=== PATIENT | male | born 1995 | race Two or more races ===

== ENCOUNTER 2017-02-04 18:36 | Emergency (ER) | payer SELFPAY ==
[~2017-02-04] VITALS: Ht 180.3 cm; Wt 73.5 kg
[2017-02-04 19:05] VITALS: BP 116/79
[2017-02-04 19:38] LABS: Basophils # (auto) 0.1 uL; Basophils % (auto) 0.4 % (0.0-2.0); CONDITION Y; Eosinophils # (auto) 0 uL; Eosinophils % (auto) 0.1 % (0.0-7.0); Hematocrit 46.9 % (41.0-53.0); Hemoglobin 16.1 g/dL (13.5-17.5); Lymphocytes # (auto) 1.3 uL; Lymphocytes % (auto) 8.2 % (10.0-50.0); Mean Corpuscular Hemoglobin 30.6 pg (28.0-32.0); Mean Corpuscular Hgb Conc. 34.4 g/dL (32.0-36.0); Mean Corpuscular Volume 88.9 fL (80.0-100.0); Mean Platelet Volume 9.6 fL (7.4-10.4); Monocytes # (auto) 1.1 uL; Monocytes % (auto) 7.1 % (0.0-12.0); Neutrophils % (auto) 84.2 % (37.0-80.0); Platelet Count (auto) 193 10^3/uL (140-450); Red Cell Distribution Width 12.6 % (11.6-16.0); White Blood Cell 15.4 10^3/uL (4.4-10.8)
[2017-02-04 19:53] LABS: Albumin 4.2 g/dL (3.4-5.0); BUN/Creatinine Ratio 16.7; Potassium 3.7 mmol/L (3.5-5.1); Total Protein 7.8 g/dL (6.4-8.2)
== END 2017-02-05 00:26 | disposition left against medical advice (07) ==
LOC: ER 18:38
DX: R10.9 Unspecified abdominal pain (principal); R50.9 Fever, unspecified; R11.10 Vomiting, unspecified; Z53.21 Procedure and treatment not carried out due to patient leaving prior to being seen by health care provider
CPT/HCPCS: 36415; 80053; 85025

== ENCOUNTER 2024-01-10 08:08 | Emergency (ER) | payer MEDICAID ==
[~2024-01-10] VITALS: Ht 180.3 cm; Wt 100.3 kg
[2024-01-10 09:01] VITALS: BP 116/69; PULSE 79; RESP 18; TEMP 98.2; O2SAT 97
[2024-01-10 09:12] LABS: Urine Bacteria None Seen /hpf (None Seen)
[2024-01-10 09:37] LABS: Urine Blood Negative /uL (Negative); Urine Clarity Clear (Clear); Urine Color Light-Yellow (Yellow); Urine Mucus FEW (None Seen); Urine Protein, UAD Negative (Negative); Urine Urobilinogen Normal (Negative); Urine WBC <1 /hpf (0 - 3)
[2024-01-11 07:07] LABS: RPR Non Reactive (Non Reactive)
[2024-01-11 22:06] LABS: Chlamydia Trachomatis, NAA Negative (Negative); Neisseria gonorrhoeae, NAA Negative (Negative)
== END 2024-01-10 10:03 | disposition home or self-care (01) ==
LOC: ER 08:08
DX: R30.0 Dysuria (principal); Z79.899 Other long term (current) drug therapy; Z20.5 Contact with and (suspected) exposure to viral hepatitis
CPT/HCPCS: 81001; 86592; 86703

== ENCOUNTER 2024-02-04 07:58 | Emergency (ER) | payer MEDICAID ==
[~2024-02-04] VITALS: Ht 180.3 cm; Wt 100.0 kg
[2024-02-04 08:25] LABS: Urine Bacteria None Seen /hpf (None Seen)
[2024-02-04 08:37] LABS: Urine Blood Negative /uL (Negative); Urine Clarity Clear (Clear); Urine Color Light-Yellow (Yellow); Urine Protein, UAD Negative (Negative); Urine Specific Gravity 1.029 (1.001-1.035); Urine Urobilinogen Normal (Negative); Urine WBC 1 /hpf (0 - 3)
[2024-02-04] MEDS ORDERED: KETO2CRE4 TOP (09:52)
[2024-02-04] MEDS ORDERED: CEPH500C PO (09:52)
[2024-02-04 10:00] VITALS: BP 132/87; PULSE 63; RESP 18; TEMP 98.1; O2SAT 98
== END 2024-02-04 10:13 | disposition home or self-care (01) ==
LOC: ER 07:58
DX: B37.42 Candidal balanitis (principal)
CPT/HCPCS: 81001

== ENCOUNTER 2024-08-05 08:20 | Emergency (ER) | payer MEDICAID ==
[~2024-08-05] VITALS: Ht 180.3 cm; Wt 100.5 kg
[~2024-08-05 08:20] MED LIST: CEPH500C PO; KETO2CRE4 TOP
[2024-08-05] MEDS: guaiFENesin-CODEINE Liq 5 ML UD PO ONE (09:04)
--- NOTE | 2024-08-05 09:06 | ED.PDOC ---
History of Present Illness HPI Comments 28M presents to the ER w/ no prior Hx associated to the c/c of a cough, for 2 weeks. Pt reports on having a cough for 2 weeks and even left sided rib pain w/ slight SOB. Pt notes that he also feels N/. Denies chills, fever, /V/D, CP or other associated symptoms, modifiers or recent injuries or sick contact at this time. Chief Complaint: Cough Time Seen by MD: 08:35 Primary Care Provider: RADHA Friedman Notes: Nurses Notes, Medications, Allergies Allergies: Coded Allergies: NO KNOWN ALLERGIES (Unverified , 02/04/17) Home Meds Active Scripts Oseltamivir Phosphate (Tamiflu) 75 Mg Cap, 1 CAP PO BID, #10 CAP Prov:PRABHA GUTHRIE MD 08/05/24 Dextromethorphan Polistirex (Robitussin 12 Hour Cough) 30 Mg/5 Ml Meredith, 30 MG PO Q6HPRN PRN for 7 Days, #100 ML Prov:PRABHA GUTHRIE MD 08/05/24 Prednisone (Prednisone) 10 Mg Kenneth, 10 MG PO DAILY for 5 Days, #10 PACK Prov:PRABHA GUTHRIE MD 08/05/24 Azithromycin (ZITHROMAX TABLET) 250 Mg Tb, 250 MG PO DAILY for 5 Days, #6 TAB Prov:PRABHA GUTHRIE MD 08/05/24 Albuterol Sulfate (VENTOLIN MDI) 90 Mcg Ih, 90 MCG IN Q6HP PRN for 10 Days, #1 MCG Prov:PRABHA GUTHRIE MD 08/05/24 Cephalexin Monohydrate (Cephalexin) 500 Mg Cap, 1 CAP PO QID, #28 CAP Prov:BILL LILLY 02/04/24 Ketoconazole (Ketoconazole) 2 % Cre, 1 APPLIC TOP BID, #30 GRAMS Prov:BILL LILLY 02/04/24 Information Source: Patient Mode of Arrival: Ambulatory Severity: Moderate Timing: Weeks Duration: Since onset Prehospital treatment: None Past Medical History PAST MEDICAL HISTORY: Denies Surgical History: Denies all surgeries Family History Family History: Reviewed,noncontributory to illness, Unknown Social History Smoker: Non-Smoker Alcohol: Denies ETOH Use Drugs: Denies Drug Use Lives In: Home Constitutional: denies: chills, diaphoresis, fatigue, fever, malaise, sweats, weakness, others EENTM: denies: blurred vision, double vision, ear bleeding, ear discharge, ear drainage, ear pain, ear ringing, eye pain, eye redness, hearing loss, mouth pa in, mouth swelling, nasal discharge, nose bleeding, nose congestion, nose pain, photophobia, tearing, throat pain, throat swelling, voice changes, others Respiratory: reports: cough, shortness of breath; denies: hemoptysis, orthopnea, SOB at rest, SOB with excertion, stridor, wheezing, others Cardiovascular: reports: chest pain; denies: dizzy spells, diaphoresis, Dyspnea on exertion, edema, irregular heart beat, left arm pain, lightheadedness, palpitations, PND, syncope, others Gastrointestinal: denies: abdomen distended, abdominal pain, blood streaked bowels, constipated, diarrhea, dysphagia, difficulty swallowing, hematemesis, me joseluis, nausea, poor appetite, poor fluid intake, rectal bleeding, rectal pain, vomiting, others Genitourinary: denies: burning, dysuria, flank pain, frequency, hematuria, incontinence, penile discharge, penile sore, pain, testicle pain, testicle swelling, urgency, others Neurological: denies: dizziness, fainting, headache, left sided numbness, left sided weakness, numbness, paresthesia, pre-existing deficit, right sided numbness, right sided weakness, seizure, speech problems, tingling, tremors, weakness, others Musculoskeletal: denies: back pain, gout, joint pain, joint swelling, muscle pain, muscle stiffness, neck pain, others Integumetry: denies: bruises, change in color, change in hair/nails, dryness, laceration, lesions, lumps, rash, wounds, others Allergic/Immunocompromised: denies: Difficulty Healing, Frequent Infections, Hives, Itching, others Hematologic/Lymphatic: denies: anemia, blood clots, easy bleeding, easy bruising, swollen glands, others Endocrine: denies: excessive hunger, excessive sweating, excessive thirst, excessive urination, flushing, intolerance to cold, intolerance to heat, unexplained weight gain, unexplained weight loss, others Psychiatric: denies: anxiety, bipolar disorder, depression, hopeless, panic disorder, schizophrenia, sleepless, suicidal, others All Other Systems: Reviewed and Negative Physical Exam Exam Comments Slight Tachycardic General Appearance: No Apparent Distress, Normal HEENT: Normal ENT Inspection, Pharynx Normal, TMs Normal Neck: Full Range of Motion, Non-Tender, Normal, Normal Inspection Respiratory: Chest Non-Tender, Lungs Clear, No Accessory Muscle Use, No Respiratory Distress, Normal Breath Sounds Cardiovascular: No Edema, No JVD, No Murmur, No Gallop, Normal Peripheral Pulses, Regular Rate/Rhythm Breast Exam: Deferred Gastrointestinal: No Organomegaly, Non Tender, No Pulsatile Mass, Normal Bowel Sounds, Soft Genitalia: Deferred Pelvic: Deferred Rectal: Deferred Extremities: No calf tenderness, Normal capillary refill, Normal inspection, Normal range of motion, Non-tender, No pedal edema Musculoskeletal : Apperance: Normal Neurologic: Alert, litigation specialist II-XII nml as Tested, No Motor Deficits, Normal Affect, Normal Mood, No Sensory Deficits Cerebellar Function: Normal Reflexes: Normal Skin: Dry, Normal Color, Warm Lymphatic: No Adenopathy Was a procedure done? Was a procedure done?: No Differential Dx Considerations may include: Viral syndrome, COVID-19, strep throat, sore throat, influenza A, influenza B, RSV, pneumonia, other viral illness. X-Ray, Labs, Meds, VS Vital Signs Date Time Temp Pulse Resp B/P (MAP) Pulse Ox O2 Delivery O2 Flow Rate FiO2 08/05/24 11:20 98.4 91 16 109/82 (91) 96 98.4 08/05/24 09:09 100.1 117 18 114/73 (87) 96 100.1 08/05/24 09:09 117 18 96 Room Air 08/05/24 08:35 98.0 134 16 118/69 (85) 96 08/05/24 08:35 16 96 Room Air* 0 21 Lab Test 08/05/24 09:12 Range/Units Influenza Type A Antigen Positive Negative Influenza Type B Antigen Negative Negative SARS-CoV-2 Antigen (Rapid) Negative NEGATIVE Group A Streptococcus Rapid Positive Current Medications Medications (Trade) Dose Ordered Sig/Radha Route Start Time Stop Time Status Last Admin Guaifenesin/ Codeine Phosphate (Robitussin/ Codeine Liq) 5 ml ONCE ONCE PO 08/05/24 09:00 08/05/24 09:01 DC 08/05/24 09:04 Time of 1ST Reevaluation: 09:05 Reevaluation 1ST: Unchanged Patient Education/Counseling: Diagnosis, Treatment, Prognosis Family Education/Counseling: No Family Present Departure 1 Departure Time of Disposition: 09:52 Impression: Primary Impression: Acute bronchitis Additional Impression: Influenza A Disposition: 01 HOME / SELF CARE / HOMELESS Condition: Stable Additional Instructions: Thank you for visiting our Emergency Room. I wish you full and complete recovery. Please follow the following instructions: 1. Take your medication bottles with you to EVERY DOCTOR'S VISIT (including your primary doctor). 2. Please follow up with your primary doctor in 2-3 days or sooner if symptoms do not improve. 3. Please read all the papers given to you at the time of the discharge so that you understand your condition better. 4. Please note that the emergency room visits are focused and not necessarily comprehensive. Therefore, it is possible that some occult medical conditions may go undiagnosed in the ER. 5. The emergency room visits are not and should not be thought of as replacement for regular visits with your primary doctor. 6. Therefore, it is absolutely critical that you follows up with your primary doctor on regular basis to make sure you receives a complete and comprehensive care. 7. I recommended the you take the hospital discharge papers to your primary care physician and other doctors' offices with you. 8. Go to your nearest emergency room if you think your condition gets worse or you think your condition is an emergency. e-Prescriptions Oseltamivir Phosphate (Tamiflu) 75 Mg Cap 1 CAP PO BID, #10 CAP Prov: PRABHA GUTHRIE MD 08/05/24 Dextromethorphan Polistirex (Robitussin 12 Hour Cough) 30 Mg/5 Ml Meredith 30 MG PO Q6HPRN PRN for 7 Days, #100 ML Prov: PRABHA GUTHRIE MD 08/05/24 Prednisone (Prednisone) 10 Mg Kenneth 10 MG PO DAILY for 5 Days, #10 PACK Prov: PRABHA GUTHRIE MD 08/05/24 Azithromycin (ZITHROMAX TABLET) 250 Mg Tb 250 MG PO DAILY for 5 Days, #6 TAB Prov: PRABHA GUTHRIE MD 08/05/24 Albuterol Sulfate (VENTOLIN MDI) 90 Mcg Ih 90 MCG IN Q6HP PRN for 10 Days, #1 MCG Prov: PRABHA GUTHRIE MD 08/05/24 Discharged With: Self Critical Care Note Critical Care Time?: No Stability Stability form required: No I personally scribed for PRABHA GUTHRIE MD ([email or web address]) on 08/05/24 at 09:06. Electronically submitted by Don Rose ([email or web address]). PRABHA GUTHRIE MD Aug 05, 2024 09:06
--- NOTE | 2024-08-05 09:29 | DVH ---
CHEST RADIOGRAPH Indication: cough Technique: Single frontal view of the chest was obtained COMPARISON: None FINDINGS: Lines and Tubes: None Lungs: Clear Pleura: No effusion. No pneumothorax. Cardiomediastinal contours: Unremarkable Bones: Unremarkable IMPRESSION: No acute disease.
[2024-08-05] MEDS ORDERED: PRED1PAK9 PO (09:51)
[2024-08-05] MEDS ORDERED: DEXT1SUS PO (09:51)
[2024-08-05] MEDS ORDERED: ALBUAER3 IN (09:51)
[2024-08-05] MEDS ORDERED: AZIT-185 PO (09:51)
[2024-08-05 10:46] LABS: COVID19 ANTIGEN SOFIA FIA NEGATIVE (NEGATIVE)
[2024-08-05 10:47] LABS: Rapid Strep A Screen-Throat Positive
[2024-08-05 10:50] LABS: Rapid Influenza A Positive (Negative); Rapid Influenza B Negative (Negative)
[2024-08-05] MEDS ORDERED: OSEL75CA5 PO (11:12)
[2024-08-05 11:20] VITALS: BP 109/82; PULSE 91; RESP 16; TEMP 98.4; O2SAT 96
== END 2024-08-05 11:36 | disposition home or self-care (01) ==
LOC: ER 08:20
DX: J20.9 Acute bronchitis, unspecified (principal); J10.1 Influenza due to other identified influenza virus with other respiratory manifestations; R05.9 Cough, unspecified; R07.81 Pleurodynia; Z20.822 Contact with and (suspected) exposure to COVID-19
CPT/HCPCS: 36415; 71045; 87426; 87804; 87880